=== PATIENT | female | born 1950 | race Caucasian/White ===

== ENCOUNTER → 2017-02-21 | Outpatient (CLI) | payer OTHER ==
--- NOTE | 2017-02-21 16:28 | RADRPT ---
PROCEDURE: XR Left hip and pelvis. CLINICAL INDICATION: Left hip pain and pelvic pain. TECHNIQUE: 3 views. Frontal pelvis. Frontal and lateral left hip. COMPARISON: None. FINDINGS: There is no fracture or dislocation. The soft tissues are normal. The right hip is normal. There are severe degenerative changes of the left hip with joint space latoya rowing, osteophytes, subarticular sclerosis, and deformity. There are also degenerative changes of the lower lumbar spine. There is no lytic or blastic lesion. There is no radiopaque foreign body. IMPRESSION: 1. Severe degenerative changes of the left hip. 2. Degenerative changes of the lower lumbar spine. 3. Otherwise unremarkable study. RPTAT: QQ .Kiel Bassett MD, MD Date Time Electronically viewed and signed by .Kiel Bassett MD, on 02/21/2017 16:27 .R/
== END | disposition home or self-care (01) ==
LOC: HKI 15:55
PROVIDERS: ATTEND Orthopaedic Surgery
DX: M25.552 Pain in left hip (principal); M06.9 Rheumatoid arthritis, unspecified; E06.3 Autoimmune thyroiditis; M10.9 Gout, unspecified; G70.00 Myasthenia gravis without (acute) exacerbation
CPT/HCPCS: 73502; G0463